=== PATIENT | female | born 1985 | race Two or more races ===

== ENCOUNTER 2024-12-09 08:05 | Emergency (ER) | payer BC ==
[~2024-12-09] VITALS: Ht 152.4 cm; Wt 88.5 kg
[2024-12-09] MEDS ORDERED: IBUPROFEN 800 MG TABLET ONE (09:22)
[2024-12-09] MEDS: IBUPROFEN 800 MG TABLET PO ONE (09:26)
[2024-12-09 09:43] LABS: *BILIRUBIN,URIN NEGATIVE (NEGATIVE); *BLOOD, URINE NEGATIVE (NEGATIVE); *CLARITY,URINE CLEAR (CLEAR); *COLOR,URINE YELLOW (YELLOW); *KETONES,URINE NEGATIVE (NEGATIVE); *PROTEIN,URINE NEGATIVE (NEGATIVE); *UROBILINOGEN,URINE 0.2 E.U./dl (NORMAL); LEUKOCYTE ESTERASE ,URINE NEGATIVE (NEGATIVE); NITRITE, URINE NEGATIVE (NEGATIVE); UGLUCOSE NEGATIVE (NEGATIVE)
[2024-12-09 09:45] LABS: *URINE HCG, QUAL NEGATIVE (NEGATIVE)
[2024-12-09] MEDS ORDERED: IBUP-1957 PO (10:58)
[2024-12-09 11:14] VITALS: BP 155/110; O2SAT 96
== END 2024-12-09 11:14 | disposition home or self-care (01) ==
LOC: ER 08:05
DX: S16.1XXA Strain of muscle, fascia and tendon at neck level, initial encounter (principal); S39.012A Strain of muscle, fascia and tendon of lower back, initial encounter; V43.52XA Car driver injured in collision with other type car in traffic accident, initial encounter; Y93.89 Activity, other specified; Y92.488 Other paved roadways as the place of occurrence of the external cause; Y99.8 Other external cause status
CPT/HCPCS: 72125; 84703; A4606; A4663